=== PATIENT | male | born 1930 | race Caucasian/White ===

== ENCOUNTER 2018-04-18 23:10 | Emergency (ER) | payer OTHER ==
[~2018-04-18] VITALS: Ht 172.7 cm; Wt 66.1 kg
[~2018-04-18 23:10] MED LIST: AGGR PO; AMLO2.5T45 PO; ASPI-1159 PO; ATOR-2 PO; GLIP10TA10 PO; LISI40TA4 PO; METF500T6 PO; OCD MT; TERA5CAP4 PO
[2018-04-18] MEDS ORDERED: SODIUM CHLORIDE 0.9% 1,000 ML IV ONE (23:18)
[2018-04-19 00:36] LABS: BASOPHILS % 0.6 % (0.0-2.0); EOSINOPHILS % 1.2 % (0.0-5.0); HEMATOCRIT. 36.6 % (42.0-52.0); LYMPHOCYTES % 27.2 % (20.0-50.0); MEAN CORPUSCULAR HEMOGLOBIN 26.4 pg (28.0-32.0); MEAN CORPUSCULAR VOLUME 80.8 fL (80.0-94.0); MEAN PLATELET VOLUME 8.8 fl (7.4-10.4); MONOCYTES % 9.8 % (2.0-8.0); NEUTROPHILS % 61.2 % (40.0-76.0); PLATELET 203 x1000/uL (130-400); RED BLOOD CELL COUNT 4.52 mill/uL (4.7-6.1)
[2018-04-19 00:43] LABS: CHLORIDE 107 mEq/L (98-107)
[2018-04-19 00:49] LABS: INR 1.1; PROTHROMBIN TIME 11.4 sec (9.4-11.6)
[2018-04-19 00:53] LABS: ETHANOL BLOOD < 10 mg/dL
[2018-04-19 00:55] LABS: AMMONIA 14 uMol/L (<32)
[2018-04-19 00:56] LABS: CREATINE KINASE 98 IU/L (39-308)
[2018-04-19] MEDS ORDERED: ASPIRIN 325MG EC TABLET PO SCH (02:33)
[2018-04-19 04:36] VITALS: BP 159/72
[2018-04-19] MEDS ORDERED: NA PHOS,M-B/NA PHOS,DI-BA ENEMA 118ML PR PRN (06:30)
[2018-04-19] MEDS ORDERED: MAGNESIUM/ALUMINUM HYDROXIDE/SIMETHICONE 30ML UDC PO PRN (06:30)
[2018-04-19] MEDS ORDERED: ACETAMINOPHEN 325MG TABLET PO PRN (06:30)
[2018-04-19] MEDS ORDERED: ONDANSETRON HCL 4MG/2ML VIAL IV PRN (06:30)
[2018-04-19] MEDS ORDERED: ENOXAPARIN 40MG/0.4ML SYR SUBCUT SCH (06:30)
[2018-04-19] MEDS ORDERED: HYDROCODONE/ACETAMINOPHEN 5/325MG TABLET PO PRN (06:30)
[2018-04-19] MEDS ORDERED: CLONIDINE 0.1MG TABLET PO PRN (06:30)
[2018-04-19] MEDS ORDERED: AMLODIPINE 10MG TABLET PO SCH (09:00)
[2018-04-19] MEDS ORDERED: ASPIRIN 81MG EC TABLET PO SCH (09:00)
== END 2018-04-19 04:07 | disposition left against medical advice (07) ==
LOC: ER 23:35 → EDBEDREQ 04-19 02:26 → ER 04-19 04:07 → SUPCPDRO 04-19 06:15 → CANBEDREQ 04-19 07:04
DX: R41.0 Disorientation, unspecified (principal); E86.0 Dehydration; N28.9 Disorder of kidney and ureter, unspecified; I11.9 Hypertensive heart disease without heart failure; E03.9 Hypothyroidism, unspecified; H70.93 Unspecified mastoiditis, bilateral; E11.9 Type 2 diabetes mellitus without complications; I51.9 Heart disease, unspecified; Z87.820 Personal history of traumatic brain injury
CPT/HCPCS: 36415; 70450; 71045; 80053; 82140; 82550; 82962; 83880; 84443; 84484; 85025; 85610; 93005; 96360; 99285; G0482; J7030